=== PATIENT | female | born 2000 ===

== ENCOUNTER 2023-07-09 11:23 | Outpatient (CLI) | payer SELFPAY ==
--- NOTE | ~2023-07-09 | US_ITS ---
EXAMINATION: US pelvic complete w TV DATE: 07/09/2023 12:05 INDICATION: Pelvic and perineal pain. TECHNIQUE: Multiple transabdominal and transvaginal sonographic images of the pelvis were obtained. COMPARISON: None. FINDINGS: TRANSABDOMINAL ULTRASOUND: The uterus measures 7.6 x 3.7 x 4.3 cm. There is no free fluid in the pelvis. TRANSVAGINAL ULTRASOUND: The endometrial complex measures 4 mm in thickness. The right ovary measures 2.3 x 2.0 x 2.6 cm. The left ovary measures 2.8 x 2.1 x 1.7 cm. There is normal vascular flow in the ovaries. IMPRESSION: 1. Normal pelvis. Reviewed, dictated and finalized at location E. IMPRESSION: 1. Normal pelvis.
== END 2023-07-09 11:24 ==
PROVIDERS: PCP Obstetrics & Gynecology; Visit Provider Obstetrics & Gynecology
DX: R10.2 Pelvic and perineal pain (principal)
CPT/HCPCS: 76830; 76856